=== PATIENT | female | born 1985 ===

== ENCOUNTER 2017-04-29 23:42 | Emergency (ER) | payer BC ==
[2017-04-29 23:47] VITALS: TEMP 98.4
--- NOTE | 2017-04-30 00:06 | ED PDOC ---
HPI:STROKE - Time Time: 23:55 - Historian Historian: Patient - Chief Complaint Chief Complaint: Numbness (and tingling ) - Onset Date: 04/29/17 Time: 23:00 Onset: Hours (1) - Timing Timing: Currently Symptomatic - Notes: Notes:: 31yo female with PMHx of HTN (on coreg) presents to the ED with c/o left sided numbness and tingling that began 1 hour [employer]. Patient states she felt tired around 1500 today and felt like her bp was elevated prompting her to check her bp which was noted to be at 150/110. She took her coreg and felt better. Around 1900 she felt like her bp was elevated again so she took 2 more coreg pills. Patient states 1 hour before arriving to the ED she began to feel numbness and tingling to the left side of her face, arm, and leg. Reports feeling anxious as well with chest tightness when she takes deep breaths. Has never had these symptoms in the past. Denies weakness or any other medical complaints. NIHSS Stroke Scale - Date/Time Evaluation Performed Date Performed: 04/29/17 Time Performed: 23:55 - How Severe is the Stroke Level of Consciousness: 0=Alert LOC to Questions: 0=Both comments correct LOC to commands: 0=Obeys both correctly Best Gaze: 0=Normal Visual: 0=No visual loss Facial: 0=Normal Motor Arm - Left: 0=No drift Motor Arm - Right: 0=No drift Motor Leg - Left: 0=No drift Motor Leg - Right: 0=No drift Limb Ataxia: 0=Absent Sensory: 0=Normal Best Language: 0=No aphasia Dysarthia: 0=Normal articulation Extinction & Inattention (Neglect): 0=Normal, no object Score: 0 Severity Of Stroke: 0 = No Stroke rTPA Inclusion/Exclusion - Refusal of Treatment Patient Refused Treatment: No - Inclusion Criteria for Altepase Patient is 18 years or Older: Yes The Clinical Diagnosis of Ischemic Stroke That is Causing a Potentially Disabling Neurological Deficit: No Time of Onset is Well Established to be Less Than 270 Minute Before Treatment Would Begin: No Risk/Benefit Discussed With Patient/Family Member Present: No - Exclusion Criteria for Altepase Uncontrolled Hypertension at Time of Treatment (Systolic BP above 185 or Diastolic BP above 110 mmHg): No Active Internal Bleeding: No Known Bleeding Diathesis Including but Not Limited to: Platelets Below 100,000/ mm,PTT Above 40 sec After Heparin Use, Current Use of Oral Anitcoagulant With INR Greater Than 1.7 or PT Greater Than 15 secs: No Evidence of an Intracranial Hemorrhage: No Evidence of Major Acute Infarct With Signs Greater Than 1/3 MCA Territory: No Suspicion of Subarachnoid Hemorrhage on Pretreatment Evaluation Even if CT Head Negative For Hemorrhage: No Past Medical History Reviewed: Historical Data, Nursing Documentation, Vital Signs Vital Signs: Last Vital Signs Temp 98.4 F 04/29/17 23:44 Pulse 100 H 04/29/17 23:44 Resp 16 04/29/17 23:44 BP 147/103 H 04/29/17 23:44 Pulse Ox 100 04/29/17 23:44 - Medical History PMH: HTN - Surgical History Surgical History: No Surg Hx - Family History Family History: States: No Known Family Hx - Social History Current smoker - smoking cessation education provided: No Alcohol: Social Drugs: Denies - Allergies Allergies/Adverse Reactions: Allergies Allergy/AdvReac Type Severity Reaction Status Date / Time No Known Allergies Allergy Verified 04/29/17 23:44 Review of Systems ROS Statement: Except As Marked, All Systems Reviewed And Found Negative Cardiovascular: Positive for: Other (high bp, chest tightness with deep breaths ) Neurological: Positive for: Numbness (left side of face, arm, leg ), Other ( tingling to left side of face, arm, and leg ). Negative for: Weakness Psych: Positive for: Anxiety Physical Exam - Reviewed Nursing Documentation Reviewed: Yes Vital Signs Reviewed: Yes - Physical Exam Appears: Positive for: Well, No Acute Distress (appears anxious ) Head Exam: Positive for: ATRAUMATIC, NORMAL INSPECTION, NORMOCEPHALIC Skin: Positive for: Normal Color, Warm, Dry Eye Exam: Positive for: Normal appearance, EOMI, PERRL ENT: Positive for: Normal ENT Inspection Neck: Positive for: Normal, Painless ROM, Supple Cardiovascular/Chest: Positive for: Regular Rate, Rhythm. Negative for: Murmur , Tachycardia Respiratory: Positive for: Normal Breath Sounds. Negative for: Wheezing, Respiratory Distress Gastrointestinal/Abdominal: Positive for: Normal Exam, Soft. Negative for: Tenderness Back: Positive for: Normal Inspection. Negative for: L CVA Tenderness, R CVA Tenderness Extremity: Positive for: Normal ROM. Negative for: Deformity, Swelling Neurologic/Psych: Positive for: Alert, it risk analyst II-XII (intact ), Oriented, Cerebellar Tests (normal ), Gait (stable), Other (slight numbness left arm ). Negative for: Motor/Sensory Deficits, Aphasia, Facial Droop - Laboratory Results Result Diagrams: 04/29/17 00:01 04/29/17 00:01 - ECG ECG: Positive for: Interpreted By Me, Viewed By Me ECG Rhythm: Positive for: Sinus Rhythm (NSR at 75 bpm ) O2 Sat by Pulse Oximetry: 100 Pulse Ox Interpretation: Normal (RA) Medical Decision Making Medical Decision Makin: Impression: left sided numbness/tingling, r/o CVA Plan: Type and screen CT head Labs EKG CXR IVF reassess 0011: CT head impression: Unremarkable head/brain CT. 0128: BP came down to normal range. Patient feels better, symptoms resolved. pt states she thinks she was just anxious. but feels fine now. Spoke with racquel office administration instructor Dr. Paredes who advises giving patient aspirin and states patient can follow up outpatient. Provider instructed patient to follow up with Dr. Paredes in 1-2 days. Return to the ED with any worsening or concerning symptoms. Scribe Attestation: Documented by Mady Osborne acting as a scribe for Nitin Figueredo MD. Provider Scribe Attestation: All medical record entries made by the Scribe were at my direction and personally dictated by me. I have reviewed the chart and agree that the record accurately reflects my personal performance of the history, physical exam, medical decision making, and the department course for this patient. I have also personally directed, reviewed, and agree with the discharge instructions and disposition. Disposition - Clinical Impression Clinical Impression: Arm paresthesia, left - Patient ED Disposition Is Patient to be Admitted: No Counseled Patient/Family Regarding: Studies Performed, Diagnosis, Need For Followup - Disposition Referrals: Rajat Paredes MD [Staff Provider] - Pako Otoole MD [Primary Care Provider] - Disposition: Routine/Home Disposition Time: 01:40 Condition: IMPROVED Additional Instructions: follow up with Dr Paredse in 1-2 days return to the ED with any worsening or concerning symptoms Instructions: Paresthesia (ED)
[2017-04-30 00:07] LABS: BASO % 0.4 % (0.0-2.0); EOS # 0.1 K/uL (0.0-0.7); EOS % 1.2 % (0.0-4.0); HEMATOCRIT 37.6 % (34.0-47.0); MEAN CELL VOLUME 85.9 fl (81.0-99.0); MEAN CORPUSCULAR HEMOGLOBIN 27.7 pg (27.0-31.0); MEAN CORPUSCULAR HGB CONC 32.3 g/dL (33.0-37.0); MEAN PLATELET VOLUME 9.6 fl (7.2-11.7); MONO # 0.5 K/uL (0.0-0.8); MONO % 7.4 % (0.0-10.0); NEUT # 3.2 K/uL (1.8-7.0); NRBC % 0.1 % (0.0-0.0); WHITE BLOOD COUNT 6.7 K/uL (4.8-10.8)
[2017-04-30 00:15] LABS: ALB/GLOB RATIO 1.3 (1.0-2.1); ALKALINE PHOSPHATASE 65 U/L (38-126); ALT/SGPT 27 U/L (9-52); AST/SGOT 21 U/L (14-36); BILIRUBIN,TOTAL 0.3 mg/dl (0.2-1.3); BLOOD UREA NITROGEN 10 mg/dl (7-17); CARBON DIOXIDE 20 mmol/L (22-30); CHLORIDE 109 mmol/L (98-107); CHOLESTEROL 141 mg/dL (0-199); GFR AFRICAN-AMERICAN > 60; GLUCOSE,RANDOM 88 mg/dL (65-105); POTASSIUM 4.6 MMOL/L (3.6-5.0); SODIUM 139 mmol/l (132-148); TOTAL PROTEIN 7.3 G/DL (6.3-8.2)
[2017-04-30 00:43] LABS: PARTIAL THROMBOPLASTIN TIME 30.9 Seconds (25.6-37.1)
[2017-04-30 02:01] VITALS: BP 123/86; PULSE 72; RESP 18
--- NOTE | 2017-04-30 11:59 | CT ---
PROCEDURE: CT HEAD WITHOUT CONTRAST. HISTORY: code stroke COMPARISON: None available. TECHNIQUE: Axial computed tomography images were obtained through the head/brain without intravenous contrast. Radiation dose: Total exam DLP = 1260 mGy-cm. This CT exam was performed using one or more of the following dose reduction techniques: Automated exposure control, adjustment of the mA and/or kV according to patient size, and/or use of iterative reconstruction technique. FINDINGS: HEMORRHAGE: No intracranial hemorrhage. BRAIN: No mass effect or edema. No atrophy or chronic microvascular ischemic changes. VENTRICLES: Unremarkable. No hydrocephalus. CALVARIUM: Unremarkable. PARANASAL SINUSES: Unremarkable as visualized. No significant inflammatory changes. MASTOID AIR CELLS: Unremarkable as visualized. No inflammatory changes. OTHER FINDINGS: None. IMPRESSION: No acute intracranial abnormalities. No significant findings to account for the clinical presentation. Concordant results (preliminary interpretation) provided by [facility]. Procedure Completed: 13:59. April 29, 2017. Preliminary ([facility]) Report: Dictated and Authenticated: 00:11. April 18, 2017. Final Interpretation: 11:57. April 18, 2017.
--- NOTE | 2017-04-30 12:14 | RAD ---
HISTORY: left arm numbness COMPARISON: None available TECHNIQUE: Chest, one view. FINDINGS: External artifact likely related to the patient's hair obscures evaluation of the right lung apex. Ovoid thin linear density is also seen projecting over the right upper lobe, also presumably external to the patient. LUNGS: No focal consolidation. Please note that chest x-ray has limited sensitivity for the detection of pulmonary masses. PLEURA: No significant pleural effusion identified. No definite pneumothorax . CARDIOVASCULAR: The cardiomediastinal silhouette appears within normal limits of size. OSSEOUS STRUCTURES: No acute osseous abnormality identified. VISUALIZED UPPER ABDOMEN: Unremarkable. OTHER FINDINGS: None. IMPRESSION: External artifact limits evaluation of the right lung apex as above. Otherwise no focal consolidation, significant pleural effusion, or definite pneumothorax evident.
[2017-05-01 11:42] VITALS: O2SAT 100
--- NOTE | 2017-05-01 11:46 | CARD ---
APPROVED REPORT EKG Measurement Heart [id number] <Conclusion> Normal sinus rhythm Normal ECG
== END 2017-04-30 02:01 | disposition home or self-care (01) ==
LOC: H.ER 23:42
DX: R20.2 Paresthesia of skin (principal); I10 Essential (primary) hypertension; F41.9 Anxiety disorder, unspecified